=== PATIENT | male | born 1965 | race Caucasian/White ===

== ENCOUNTER 2018-12-07 23:37 | Emergency (ER) | payer BC, MEDICARE ==
[2018-12-08] MEDS ORDERED: Sodium Chloride 0.9% 1,000 ML IV ONE (00:01)
--- NOTE | 2018-12-08 00:06 | ED Physician Chart ---
ED Chief Complaint/HPI - Patient Information Date Seen:: 12/08/18 Time Seen:: 00:02 Chief Complaint:: neck pain dizziness History of Present Illness:: 53 yr old male with recent onset dizziness when he sits up and some neck pain on both sides near top of the shoulders no headache no numbness or tingling Allergies:: Allergies Allergy/AdvReac Type Severity Reaction Status Date / Time No Known Allergies Allergy Verified 12/07/18 23:46 Vitals:: Vital Signs - 8 hr 12/07/18 23:40 Temp 98.1 F HR 72 RR 18 BP 144/95 O2 Sat % 96 ED Review of Systems - Review of Systems General/Constitutional: No fever Skin: No skin lesions Head: No headache Eyes: No loss of vision ENT: No earache Neck: Neck pain Cardio Vascular: No chest pain Pulmonary: No SOB GI: Nausea, No vomiting G/U: No dysuria Musculoskeletal: Bone or joint pain Endocrine: No polyuria Psychiatric: Prior psych history Hematopoietic: No bruising Allergic/Immuno: No urticaria Neurological: No syncope, Dizziness, Vertigo Family Medical History - Family Member Mother History Unknown: Yes ED Septic Shock - . Is Septic Shock (SBP<90, OR Lactate>4 mmol\L) present?: No - <6hrs of presentation: Vital Signs: Vital Signs - 8 hr 12/07/18 23:40 Temp 98.1 F HR 72 RR 18 BP 144/95 O2 Sat % 96 ED Reassessment (Disposition) - Reassessment Reassessment:: dizziness neck pain - Diagnosis Diagnosis:: as above - Patient Disposition Discharge/Transfer:: Home Condition at Disposition:: Stable
[2018-12-08 00:25] LABS: % BASOPHILS 0.6 % (0.0-2.0); % LYMPHOCYTES 15.3 % (20.0-50.0); % MONOCYTES 6.3 % (2.0-10.0); % NEUTROPHILS 70.8 % (40.0-80.0); EOSINOPHILE ABSOLUTE 0.5 Th/cmm (0.1-0.4); HEMATOCRIT 40.4 % (41.0-60); HEMOGLOBIN 13.3 gm/dL (12-16); MEAN CELL VOLUME 87.2 fl (80-99); MEAN CORPUSCULAR HEMOGLOBIN 28.8 pg (26.0-30.0); MEAN PLATELET VOLUME 8.1 fl; MONOCYTE ABSOLUTE 0.4 Th/cmm (0.3-1.0); NEUTROPHILE ABSOLUTE 4.6 Th/cmm (1.8-8.0); PLATELET COUNT 155 Th/cmm (150-400); RED BLOOD COUNT 4.64 Mil/cmm (4.30-5.70); RED CELL DISTRIBUTION WIDTH 12.5 % (11.5-20.0); WHITE BLOOD COUNT 6.5 Th/cmm (4.8-10.8)
[2018-12-08 00:39] LABS: ALB/GLOB RATIO 1.4 (1.0-1.8); ALBUMIN 3.8 gm/dL (4.2-5.5); ALKALINE PHOSPHATASE 48 U/L (34-104); ANION GAP 12.7 (7.0-16.0); BILIRUBIN,TOTAL 0.6 mg/dL (0.3-1.0); BUN - UREA NITROGEN 17 mg/dL (7-25); CALCIUM SERUM 9.5 mg/dL (8.6-10.3); CHLORIDE 107 mEq/L (98-107); GFR AFRICAN-AMERICAN > 60.0 ml/min (>90); GFR NON AFRICAN-AMERICAN > 60.0 ml/min; GLUCOSE 107 mg/dL (70-105); POTASSIUM SERUM 3.7 mEq/L (3.5-5.1); SGOT 12 U/L (13-39); SGPT/ALT 16 U/L (7-52); SODIUM SERUM 142 mEq/L (136-145); TOTAL PROTEIN,SERUM 6.6 gm/dL (6.0-8.3)
[2018-12-08 01:30] LABS: URINE SOURCE CLEAN C
[2018-12-08 01:31] LABS: URINE BILIRUBIN NEGATIVE (NEGATIVE); URINE BLOOD TRACE (NEGATIVE); URINE GLUCOSE (UA) NEGATIVE (NEGATIVE); URINE KETONE NEGATIVE (NEGATIVE); URINE LEUKOCYTE ESTERASE NEGATIVE (NEGATIVE); URINE MICROSCOPIC INDICATED? YES; URINE NITRATE NEGATIVE (NEGATIVE); URINE PH 5.5 (4.6 - 8.0); URINE PROTEIN 100 mg/dL (NEGATIVE); URINE UROBILINOGEN 0.2 E.U./dL (0.2 - 1.0)
[2018-12-08 01:32] LABS: URINE CLARITY CLEAR (CLEAR); URINE COLOR YELLOW
[2018-12-08 01:40] LABS: URINE EPITHELIAL CELLS RARE /lpf (FEW); URINE RBC 0-2 /hpf (0-5); URINE WBC 0-2 /hpf (0-5)
[2018-12-08 01:41] LABS: URINE BACTERIA OCCASIONAL /hpf (NONE SEEN)
--- NOTE | 2018-12-08 08:01 | Diagnostic Imaging Report ---
Exam: CT examination cervical spine. HISTORY: Dizziness Total DLP equals 605 CTDI equals 25.0 Findings: Multiple contiguous thin section of the cervical spine were obtained in the plane with coronal and sagittal reconstruction technique. No prior studies available comparison The study demonstrates vertebral bodies of normal height with preserved intervertebral disc spaces. The neural canal is intact. No prevertebral soft tissue swelling is noted. The posterior elements are intact. IMPRESSION: essentially unremarkable examination of the cervical spine.
--- NOTE | 2018-12-08 08:03 | Diagnostic Imaging Report ---
CT scan of the brain without contrast History: Pain Total DLP equals 782 CTDI equals 41.5 Axial sections were obtained from the base of the skull to the vertex. There is a normal ventricular system size. No focal parenchymal lesions are seen. No evidence of any mass effect or shift of midline structures. No extra-axial masses or abnormal fluid collections. There is evidence of mucosal thickening, sinusitis. Impression: Unremarkable examination of brain. Mild sinusitis.
== END 2018-12-08 02:50 | disposition home or self-care (01) ==
LOC: ER 23:37
DX: M54.2 Cervicalgia (principal); R42 Dizziness and giddiness
CPT/HCPCS: 36415-UA; 70450-TC; 72125-TC; 80053-TC; 81001-TC; 85025-TC; 93005; J7030; Z7502